=== PATIENT | male | born 1965 | race Caucasian/White ===

== ENCOUNTER → 2017-07-18 | Day surgery (SDC) | payer OTHER ==
[~2017-07-18] VITALS: Ht 185.4 cm; Wt 115.0 kg
[~2017-07-18] MED LIST: Sodium Chloride LOK Flush 10 mL Syringe IV PRN; fentaNYL-PF 50 mCg/mL 2 mL Inj IVPUSH PRN
[2017-07-18 13:13] VITALS: BP 139/85; PULSE 60; RESP 14; O2SAT 96
[2017-07-18] MEDS: 0.9% Sodium Chloride 1,000 ML IV SCH ×2 (14:00→14:13)
[2017-07-18 14:19] VITALS: BP 125/67; PULSE 54; RESP 12; O2SAT 94
[2017-07-18 14:30] VITALS: BP 114/62; PULSE 53; RESP 14; O2SAT 94
[2017-07-18 14:40] VITALS: BP 116/77; PULSE 52; RESP 14; O2SAT 94
--- NOTE | 2017-07-18 16:28 | ENDO ---
[address] [address] ENDOSCOPY PROCEDURE PATIENT: ANABELLE SUÁREZ : 1965 MR#: [id number] ADMIT: 07/18/2017 JOB ID: [id number] DATE OF SERVICE: 07/18/2017 TYPE OF OPERATION: Colonoscopy and biopsy. PREOPERATIVE DIAGNOSIS(ES): History of diarrhea. POSTOPERATIVE DIAGNOSIS(ES): A 2 mm sigmoid polyp, removed by cold biopsy forceps. ANESTHESIA: Fentanyl 100 mcg, Versed 6 mg IV administered. COMPLICATIONS: None. BLOOD LOSS: Minimal. DESCRIPTION OF PROCEDURE: After risks and benefits explained to the patient, informed consent was obtained. After anesthesia administered, colonoscope was inserted from the rectum to the cecum. Mucosa carefully examined. Into the terminal ileum and mucosa carefully examined. Prep of the patient was excellent. After procedure was done, the scope withdrawn, procedure terminated. FINDINGS: Upon inspection of the anus, no masses, hemorrhoids, ulcers, fissures that were seen. Throughout the entire examination, there was a 2 mm sigmoid polyp, removed by cold biopsy forceps. Random biopsies taken at TI and random colon. No other polyps or masses were seen. Retroflexion was normal. IMPRESSION: A 2 mm sigmoid colon polyp removed by cold biopsy forceps. RECOMMENDATION: Await pathology results. If tubular adenoma, then repeat colonoscopy in five years.
--- NOTE | 2017-07-21 11:46 | PATH ---
SURGICAL PATHOLOGY Attending Physician:Chinedu Stockton MD CASE STATUS: Signed Out PATIENT NAME: ANABELLE SUÁREZ PID: [id number] : 1965 DATE COLLECTED:07/18/2017 00:00 SPECIMEN: 1: Ileum, Biopsy 2: Colon, Biopsy 3: Colon, Polyp CLINICAL HISTORY: 1). TERMINAL ILEUM BIOPSY 2). RANDOM COLON BIOPSY 3). SIGMOID COLON POLYP FINAL DIAGNOSIS: 1. Terminal ileum, Biopsy: Ileal mucosa with no diagnostic abnormality. Negative for active inflammation, granulomata, dysplasia or malignancy. 2. Random Colon, Biopsy: Colonic mucosa with no diagnostic abnormality. Negative for active or microscopic colitis. Negative for granulomata, dysplasia or malignancy. 3. Sigmoid Colon Polyp, Biopsy: Colonic mucosa with hyperplastic features. ICD10: R19.7 K63.5 GROSS DESCRIPTION: The specimen is received in three formalin filled containers labeled with the patient's name. 1). The specimen is labeled "terminal ileum" and consists of a 0.2 x 0.2 x 0.2 CM portion of tissue which is entirely submitted in cassette 1A. 2). The specimen is labeled "random colon" and consists of multiple portions of tissue which aggregate to 0.3 x 0.3 x 0.2 CM. The specimen is entirely submitted in cassette 2A. 3). The specimen is labeled "sigmoid colon polyp" and consists of a 0.3 x 0.2 x 0.2 CM portion of tissue which is entirely sedated in cassette 3A. 07/19/2017RI ICD-9 CODES: CPT CODES: 1: 78908 2: 54094 3: 72938 Electronically Signed Out Virgil Lawton MD, Ph.D. [facility] [address], [place] [address] Technical component performed at [facility], [facility] [address], [place], [address]
== END | disposition home or self-care (01) ==
LOC: END 00:44
PROVIDERS: ATTEND Internal Medicine Gastroenterology
DX: R19.7 Diarrhea, unspecified (principal); K63.5 Polyp of colon; I10 Essential (primary) hypertension; F41.9 Anxiety disorder, unspecified
CPT/HCPCS: 45380; G0500; J2250; J3010; J7030